=== PATIENT | female | born 2000 | race Two or more races ===

== ENCOUNTER 2019-06-23 08:02 | Emergency (ER) | payer OTHER ==
--- NOTE | 2019-06-23 08:20 | ER Document Report ---
ED General - General Stated Complaint: ABDOMINAL CRAMPING/SKIN RASH Time Seen by Provider: 06/23/19 08:19 Primary Care Provider: BOZENA JASON MD [ACTIVE STAFF] - Follow up as needed MARSHA GAMING MD [ACTIVE STAFF] - Follow up as needed - HPI Notes: 18-year-old female presents to the emergency room for complaints of lower ab dominal pelvic pain that started approximately 4 hours ago, cramping constant but did resolve itself approximately an hour ago. Denies any new medications foods or travel. Patient has an IUD since September has not had a "real." Since that time. states her last bowel movement was 2 days ago but is passing flatus. Patient states the pain feels like "cramping". Has not tried any [id number] medication. Patient states she also has a rash to her right lower back area that is itchy started odessa but is needing bigger. She thinks it might be ringworm. denies fevers, chills, chest pain,palpitations, shortness of breath, dyspnea, nausea, vomiting, diarrhea, , hematuria,blurred vision, double vision, loss of vision, speech changes, LH, dizziness, syncope, headaches, wheezing, ST, URI, neck pain, weakness, bowel or bladder dysfunction, saddle anesthesia, numbness or tingling in bilateral upper or lower extremities equally, muscle paralysis, weakness in bilateral upper or lower extremities equally. - Related Data Allergies/Adverse Reactions: No Known Allergies Allergy (Unverified 06/23/19 08:40) Past Medical History - General Information source: Patient - Social History Smoking Status: Unknown if Ever Smoked Family History: Reviewed & Not Pertinent Review of Systems - Review of Systems Constitutional: No symptoms reported EENT: No symptoms reported Cardiovascular: No symptoms reported Respiratory: No symptoms reported Gastrointestinal: No symptoms reported Genitourinary: See HPI Female Genitourinary: No symptoms reported Musculoskeletal: No symptoms reported Skin: See HPI Hematologic/Lymphatic: No symptoms reported Neurological/Psychological: No symptoms reported Physical Exam - Vital signs Vitals: Temp 98.2 F 06/23/19 08:03 - Notes Notes: PHYSICAL EXAMINATION: reviewed vital signs by RN GENERAL: Well-appearing, well-nourished and in no acute distress. HEAD: Atraumatic, normocephalic. EYES: Pupils equal round and reactive to light, extraocular movements intact, conjunctiva are normal. ENT: Nares patent, oropharynx clear without exudates. Moist mucous membranes. NECK: Normal range of motion, supple without lymphadenopathy LUNGS: Breath sounds clear to auscultation bilaterally and equal. No wheezes rales or rhonchi. HEART: Regular rate and rhythm without murmurs ABDOMEN: Soft, nontender in all 4 quadrants, nondistended abdomen, suprapubic tenderness on palpation no guarding, no rebound. No masses appreciated. Female : deferred Musculoskeletal: Normal range of motion, no pitting or edema. No cyanosis. NEUROLOGICAL: Cranial nerves grossly intact. Normal speech, normal gait. Normal sensory, motor exams PSYCH: Normal mood, normal affect. SKIN: Warm, Dry, normal turgor, no rashes or lesions noted. Annular rash to rig ht flank approximately 2 cm x 2 cm with scaling, no surrounding satellite lesions erythema or induration, no linear patterns Course - Re-evaluation Re-evalutation: 06/23/19 10:32 Patient was seen today for abdominal pain. After review of laboratory studies and radiologic studies there are no signs of acute abdomen or other life-t hreatening ailments. I also agree with patient that she does have tinea corporis, will prescribe her antifungal ointment to apply twice a day for likely 4 weeks but she does need to follow-up with her primary care provider. transvaginal ultrasound negative for any acute findings as well as blood work unremarkable. I did consider acute appendicitis, peritonitis, urinary tract infection, cholelithiasis, cholecystitis, abdominal aortic aneurysm, intestinal obstruction, diverticulitis/ diverticulosis and pyelonephritis. At this time I feel the patient is stable for discharge is instructed to follow up with her primary care physician in 2-3 days return to emergency department for worsening symptoms or lack of resolution of symptoms in the next 24-48 hours. 06/23/19 10:51 - Vital Signs Vital signs: Temp Pulse Resp BP Pulse Ox 98.3 F 87 16 120/76 100 06/23/19 10:43 06/23/19 10:43 06/23/19 10:43 06/23/19 10:43 06/23/19 10:43 - Laboratory Result Diagrams: 06/23/19 08:30 06/23/19 08:30 Laboratory results interpreted by me: 06/23/19 06/23/19 06/23/19 08:15 08:30 08:30 WBC 12.1 H Absolute Neuts (auto) 8.5 H Sodium 135.3 L Potassium 3.5 L Creatinine 0.49 L Urine Blood SMALL H Discharge - Discharge Clinical Impression: Abdominal pain, Tinea corporis Condition: Stable Disposition: HOME, SELF-CARE Instructions: Abdominal Pain ([facility]), Ringworm (Tinea Corporis) ([facility]) Additional Instructions: Ringworm (Tinea Corporis) You have a fungal infection of the skin, called tinea corporis. This is sometimes called "ringworm." because it tends forms an enlarging ring on the skin. The infection results from exposure to another person or an animal carrying the fungus, but it is only mildly contagious. There can be mild itching, or sometimes no symptoms at all. The infection is usually treated with antifungal cream. This is applied two or three times daily. Healing may take two or three weeks. Occasionally, oral medication is necessary, for example, when the infection if very large, or if fungus involves the scalp or nails. Fingernail or toenail infections are very difficult to eradicate, often requiring many weeks of treatment. Return for re-examination if your symptoms change significantly -- for example, if you develop fever or chills, red streaks, increasing tenderness, swelling, or blisters at the infection site. Return immediately for any new or worsening symptoms. Follow up with primary care provider, call tomorrow to make followup appointment. Prescriptions: Terbinafine HCl [Lamisil At] 30 gm TP BID #1 tube Forms: Return to Work Referrals: MARSHA GAMING MD [ACTIVE STAFF] - Follow up as needed BOZENA JASON MD [ACTIVE STAFF] - Follow up as needed
[2019-06-23 08:33] LABS: APPEARANCE,URINE CLEAR; BILIRUBIN,URINE NEGATIVE (NEGATIVE); COLOR,URINE STRAW; GLUCOSE, URINE NEGATIVE (NEGATIVE); KETONES,URINE NEGATIVE (NEGATIVE); LEUKOCYTE ESTERASE,URINE NEGATIVE (NEGATIVE); NITRITE,URINE NEGATIVE (NEGATIVE); PROTEIN,URINE NEGATIVE (NEGATIVE); URINE SPECIFIC GRAVITY 1.006; UROBILINOGEN,URINE NEGATIVE mg/dL (<2.0)
[2019-06-23 08:51] LABS: ABSOLUTE EOSINOPHILS # (AUTO) 0.1 10^3/uL (0.0-0.6); ABSOLUTE LYMPHOCYTES (AUTO) 2.7 10^3/uL (0.5-4.7); ABSOLUTE MONOCYTES (AUTO) 0.8 10^3/uL (0.1-1.4); ABSOLUTE NEUT (AUTO) 8.5 10^3/uL (1.7-8.2); BASOPHILS % (AUTO) 0.4 % (0-2); LYMPHOCYTES % (AUTO) 22.1 % (13-45); MEAN CORPUSCULAR HEMOGLOBIN 32.4 pg (27.0-33.4); MEAN CORPUSCULAR VOLUME 92 fl (80-97); MONOCYTES % (AUTO) 6.5 % (3-13); PLATELET COUNT 247 10^3/uL (150-450); RED BLOOD COUNT 4.32 10^6/uL (3.72-5.28); RED CELL DISTRIBUTION WIDTH 12.4 % (11.5-14.0); TOTAL CELLS COUNTED % (AUTO) 100 %; WHITE BLOOD COUNT 12.1 10^3/uL (4.0-10.5)
[2019-06-23 09:20] LABS: ALBUMIN 4.3 g/dL (3.5-5.0); ALKALINE PHOSPHATASE 77 U/L (38-126); ANION GAP 8 (5-19); ASPARTATE AMINO TRANSFERASE 23 U/L (14-36); BILIRUBIN,TOTAL 0.5 mg/dL (0.2-1.3); BLOOD UREA NITROGEN 10 mg/dL (7-20); CALCIUM 8.8 mg/dL (8.4-10.2); CARBON DIOXIDE 25 mmol/L (22-30); CHLORIDE 102 mmol/L (98-107); GLUCOSE 98 mg/dL (75-110); POTASSIUM 3.5 mmol/L (3.6-5.0); TOTAL PROTEIN 7.4 g/dL (6.3-8.2)
[2019-06-23 09:59] LABS: CHLAM PCR NOT DETECTED (NOT DETECT)
--- NOTE | 2019-06-23 10:05 | RADIOLOGY REPORT (SQ) ---
EXAM DESCRIPTION: U/S NON OB PEL W/DOPPLER IMAGES COMPLETED DATE/TIME: 06/23/2019 9:36 am REASON FOR STUDY: pelvic pain, cramping. sudden onset COMPARISON: None. TECHNIQUE: Dynamic and static grayscale images acquired of the pelvis via transvaginal approach and recorded on PACS. Additional selected color Doppler and spectral images recorded. LIMITATIONS: None. FINDINGS: UTERUS: Contour normal. No mass. ENDOMETRIAL STRIPE: IUD. No thickening. CERVIX: No nabothian cysts. RIGHT OVARY AND DOPPLER: Normal size. No worrisome masses. Normal arterial vascular flow without evid ence for torsion. LEFT OVARY AND DOPPLER: Normal size. No worrisome masses. Normal arterial vascular flow without evide nce for torsion. FREE FLUID: None noted. OTHER: No other significant finding. IMPRESSION: IUD. Normal ovaries. TECHNICAL DOCUMENTATION: JOB ID: [id number] [employer]- All Rights Reserved Rev-07/17 Reading location - IP/workstation name: [email or web address]
[2019-06-23 10:44] VITALS: BP 120/76
== END 2019-06-23 10:43 | disposition home or self-care (01) ==
LOC: ER 08:02
DX: B35.4 Tinea corporis (principal); R10.9 Unspecified abdominal pain; R21 Rash and other nonspecific skin eruption; R10.2 Pelvic and perineal pain
CPT/HCPCS: 36415; 76856; 80053; 81001; 81025; 83690; 85025; 87491; 87591; 93976; 99284